=== PATIENT | male | born 1965 | race Two or more races ===

== ENCOUNTER 2021-05-05 13:14 | Inpatient (IN) | payer OTHER ==
[~2021-05-05] VITALS: Ht 177.8 cm; Wt 116.6 kg
[2021-05-05] VITALS (13 sets, daily range): BP systolic 79–197; BP diastolic 43–111
[2021-05-05] MEDS ORDERED: ACCU-CHEK COMFORT CURVE STRIP VI ONE (13:30)
[2021-05-05] MEDS ORDERED: NOREPINEPHRINE 8 MG/250ML KIT 250 ML IV ONE (13:31)
[2021-05-05] MEDS ORDERED: ETOMIDATE (2MG/ML) 20ML VIAL IV ONE ×2 (13:31→13:45)
[2021-05-05] MEDS ORDERED: MIDAZOLAM DRIP 50 mg/50mL 50 ML IV ONE (13:32)
[2021-05-05] MEDS ORDERED: SUCCINYLCHOLINE CHLORIDE 20 MG/ML 10ML VIAL IV ONE ×2 (13:33→13:45)
[2021-05-05] MEDS ORDERED: MIDAZOLAM DRIP 50 mg/50mL 50 ML IV SCH (14:00)
[2021-05-05 14:02] LABS: Hematocrit 47.3 % (41.0-53.0); Mean Corpuscular Hemoglobin 34.9 pg (28.0-32.0); Mean Corpuscular Hgb Conc. 33.8 g/dL (32.0-36.0); Mean Corpuscular Volume 103.3 fL (80.0-100.0); Red Blood Cells 4.58 10^6/uL (4.5-5.90); Red Cell Distribution Width 16.3 % (11.8-14.3); White Blood Cell 11.9 10^3/uL (4.4-10.8)
[2021-05-05 14:17] LABS: Albumin 1.7 g/dL (3.4-5.0); Anion Gap 24 (5-15); Blood Urea Nitrogen 64 mg/dL (7-18); Calcium 7.8 mg/dL (8.5-10.1); Chloride 105 mmol/L (98-107); Glucose 66 mg/dL (74-106); Potassium 4.7 mmol/L (3.5-5.1); Sodium 136 mmol/L (136-145)
[2021-05-05 14:19] LABS: Alanine Aminotransferase 66 U/L (16-61); Aspartate Aminotransferase 164 U/L (15-37); BUN/Creatinine Ratio 14.3; GFR African American 18 mL/min; GFR Non-African American 14 mL/min
[2021-05-05 14:26] LABS: Basophils % (manual) 0 (0.0-2.0); Blast Cells 0; Eosinophils % (manual) 0 (0-7); Reactive Lymphocytes 0
[2021-05-05 14:27] LABS: Lactic Acid w/Reflex 14.1 mmol/L (0.4-2.0)
[2021-05-05 14:30] LABS: INR 1.96 (0.9-1.15)
[2021-05-05 14:31] LABS: Alkaline Phosphatase 131 U/L (45-117); Bilirubin, Total 20.2 mg/dL (0.2-1.0); Total Protein 6.4 g/dL (6.4-8.2)
[2021-05-05 14:35] LABS: Carbon Dioxide 7 mmol/L (21-32)
[2021-05-05] MEDS ORDERED: PROPOFOL 100 ML IV ONE (14:42)
[2021-05-05] MEDS ORDERED: NOREPINEPHRINE 8 MG/250ML KIT 250 ML IV SCH (15:00)
[2021-05-05] MEDS ORDERED: PROPOFOL 100 ML IV SCH (15:00)
[2021-05-05 15:06] LABS: Band Neutrophils % (manual) 14; Lymphocytes % (manual) 6 (10.0-50.0); Metamyelocytes % 2; Monocytes % (manual) 4 (0-12); Myelocytes % 1; Promyelocytes % 1
[2021-05-05] MEDS ORDERED: DEXTROSE 50% SYRINGE 50 ML IV ONE (15:11)
[2021-05-05] MEDS ORDERED: DEXTROSE (50%) 50ML SYRG IV ONE (15:15)
[2021-05-05] MEDS ORDERED: SODIUM BICARBONATE 8.4 % INJ 50ML VIAL IV ONE ×2 (15:30→20:30)
[2021-05-05] MEDS ORDERED: PANTOPRAZOLE 40mg/50ML NS AE 50 ML IV ONE (16:00)
[2021-05-05] MEDS ORDERED: PANTOPRAZOLE 40 MG/10 ML VIAL INJ IV ONE (16:00)
[2021-05-05] MEDS ORDERED: PHYTONADIONE (VIT K)10 MG/ML 1ML VIAL IV ONE (16:30)
[2021-05-05] MEDS ORDERED: LACTULOSE 10g/15ml SOLN PR SCH (16:41)
[2021-05-05] MEDS ORDERED: SODIUM CHLORIDE 0.9% 1,000 ML IV ONE (16:45)
[2021-05-05] MEDS ORDERED: CLINDAMYCIN 900MG IV 50 ML IV ONE (16:45)
[2021-05-05] MEDS ORDERED: LACTULOSE 10g/15ml SOLN PR ONE (16:45)
[2021-05-05] MEDS ORDERED: cefTRIAXone 1GM/50ML D5W 50 ML IV ONE (16:45)
[2021-05-05] MEDS ORDERED: ALBUTEROL SULF HFA 90MCG INH 200DOSE IN PRN (17:45)
[2021-05-05] MEDS ORDERED: NITROGLYCERIN 0.4 MG SL TAB SL PRN (17:45)
[2021-05-05] MEDS ORDERED: MORPHINE SULFATE INJECTION 2 MG/ML SYRG IV PRN (17:45)
[2021-05-05] MEDS: DexAMETHasone SOD PHOS 10MG/1ML VIAL INJ IV SCH (18:37)
[2021-05-05 19:05] LABS: Urine Bacteria NONE SEEN /hpf (None Seen); Urine Blood 2+ /uL (Negative); Urine Specific Gravity 1.025 (1.001-1.035); Urine WBC 27 /hpf (0 - 3); Urine WBC Clumps PRESENT /hpf (None Seen)
[2021-05-05 19:08] LABS: Hemoglobin 14.1 g/dL (13.5-17.5)
[2021-05-05 19:32] LABS: Amylase 21 U/L (25-115); Lipase 24 U/L (73-393)
[2021-05-05 19:35] LABS: Alcohol, Urine < 3.0 mg/dL (0-10); Amphetamine Screen, Urine POSITIVE (NEGATIVE); Barbiturate Scree,Urine NEGATIVE (NEGATIVE); Benzodiazephine Screen, Urine NEGATIVE (NEGATIVE); Cannabinoid Screen, Urine NEGATIVE (NEGATIVE); Cocaine Screen, Urine NEGATIVE (NEGATIVE); Opiate Scree,Urine NEGATIVE (NEGATIVE); Phencyclidine Screen, Urine NEGATIVE (NEGATIVE)
[2021-05-05] MEDS ORDERED: SODIUM BICARBONATE 8.4% INJ 50ML SYRINGE ONE (20:44)
[2021-05-05] MEDS ORDERED: BUDESONIDE (INHALATION) 180 MCG IH IN SCH (22:00)
[2021-05-05] MEDS: SODIUM BICARBONATE 50ML VIAL 150 ML in D5W 5% 1,000 ML IV SCH (22:01)
[2021-05-05] MEDS: CLINDAMYCIN 600MG IV 50 ML IV SCH (22:14)
[2021-05-05] MEDS ORDERED: VASOPRESSIN 50 UNITS in D5W 5% 247.5 ML IV SCH ×2 (23:15→23:45)
[2021-05-05] MEDS: PANTOPRAZOLE 40mg/50ML NS AE 50 ML IV SCH (23:22)
[2021-05-05] MEDS ORDERED: VASOPRESSIN 20 UNIT/ML ONE (23:30)
[2021-05-06] VITALS (16 sets, daily range): BP systolic 0–110; BP diastolic 0–53
[2021-05-06 00:08] LABS: INR 1.85 (0.9-1.15); Partial Thromboplastin Time 56.1 sec (23.6-33.0)
[2021-05-06] MEDS: SODIUM BICARBONATE 50ML VIAL 150 ML in D5W 5% 1,000 ML IV SCH (00:25)
[2021-05-06 01:32] LABS: Hematocrit 43.5 % (41.0-53.0); Hemoglobin 14.3 g/dL (13.5-17.5); Mean Corpuscular Hemoglobin 35.4 pg (28.0-32.0); Mean Corpuscular Hgb Conc. 32.8 g/dL (32.0-36.0); Mean Corpuscular Volume 107.9 fL (80.0-100.0); Red Blood Cells 4.03 10^6/uL (4.5-5.90); White Blood Cell 25.1 10^3/uL (4.4-10.8)
[2021-05-06 01:36] LABS: Basophils % (manual) 0 (0.0-2.0); Blast Cells 0; Eosinophils % (manual) 0 (0-7); Promyelocytes % 0; Reactive Lymphocytes 0
[2021-05-06 02:34] LABS: Band Neutrophils % (manual) 50; Lymphocytes % (manual) 9 (10.0-50.0)
[2021-05-06 02:35] LABS: Metamyelocytes % 1; Monocytes % (manual) 21 (0-12); Myelocytes % 1
[2021-05-06] MEDS: PANTOPRAZOLE 40mg/50ML NS AE 50 ML IV SCH (04:20)
[2021-05-06] MEDS: CLINDAMYCIN 600MG IV 50 ML IV SCH (06:25)
[2021-05-06] MEDS ORDERED: fentaNYL Drip 2500mCg/250mlNS 250 ML IV ONE (07:33)
[2021-05-06] MEDS ORDERED: PHENYLEPHRINE IV 250 ML IV ONE (07:33)
[2021-05-06] MEDS ORDERED: fentaNYL Drip 2500mCg/250mlNS 250 ML IV SCH (07:45)
[2021-05-06] MEDS ORDERED: PHENYLEPHRINE IV 250 ML IV SCH (07:45)
[2021-05-06] MEDS ORDERED: OCTREOTIDE ACETATE 500 MCG in SODIUM CHL 0.9% 99 ML IV SCH (08:30)
[2021-05-06] MEDS ORDERED: cefTRIAXone 1GM/50ML D5W 50 ML IV SCH (09:00)
[2021-05-06 09:10] LABS: Hemoglobin 12.3 g/dL (13.5-17.5)
[2021-05-06 09:12] LABS: Hematocrit 36.2 % (41.0-53.0); Mean Corpuscular Volume 105.8 fL (80.0-100.0); Red Blood Cells 3.42 10^6/uL (4.5-5.90); Red Cell Distribution Width 17.6 % (11.8-14.3)
[2021-05-06] MEDS: DexAMETHasone SOD PHOS 10MG/1ML VIAL INJ IV SCH (09:17)
[2021-05-06 09:19] LABS: INR 2.39 (0.9-1.15); Partial Thromboplastin Time 68.1 sec (23.6-33.0)
[2021-05-06 09:22] LABS: Basophils % (manual) 0 (0.0-2.0); Blast Cells 0; Eosinophils % (manual) 0 (0-7); Promyelocytes % 0; Reactive Lymphocytes 0
[2021-05-06 10:10] LABS: Band Neutrophils % (manual) 35; Lymphocytes % (manual) 5 (10.0-50.0); Metamyelocytes % 2; Monocytes % (manual) 6 (0-12); Myelocytes % 2
[2021-05-06 10:34] LABS: Sodium 135 mmol/L (136-145)
[2021-05-06 10:35] LABS: Alkaline Phosphatase 145 U/L (45-117); Anion Gap 25 (5-15); BUN/Creatinine Ratio 13.1; Blood Urea Nitrogen 73 mg/dL (7-18); Carbon Dioxide 13 mmol/L (21-32); Chloride 97 mmol/L (98-107); GFR African American 14 mL/min; GFR Non-African American 11 mL/min; Glucose 103 mg/dL (74-106); Potassium 7.7 mmol/L (3.5-5.1)
[2021-05-06 10:36] LABS: Alanine Aminotransferase 431 U/L (16-61); Albumin 1.2 g/dL (3.4-5.0); Aspartate Aminotransferase 1932 U/L (15-37); Bilirubin, Total 15.7 mg/dL (0.2-1.0); Calcium 5.3 mg/dL (8.5-10.1); Total Protein 4.3 g/dL (6.4-8.2)
[2021-05-06] MEDS ORDERED: ALBUTEROL SULF 2.5 MG/0.5ML(0.5%) NEB SOLN ONE (11:11)
[2021-05-06] MEDS ORDERED: CALCIUM GLUC 1,000mg/50ml-NS 50 ML IV ONE (11:15)
[2021-05-06] MEDS ORDERED: ALBUTEROL SULF 2.5 MG/0.5ML(0.5%) NEB SOLN NEB ONE (11:15)
[2021-05-06] MEDS ORDERED: LACTULOSE 20Gm/30ML SOLN PO SCH (12:00)
== END 2021-05-06 12:16 | DRG 720 ==
LOC: ER 13:14 → EDBD 13:14 → TELE 17:34
PROVIDERS: ADMIT Internal Medicine; ATTEND Internal Medicine
PROC: 0BH17EZ Insertion of Endotracheal Airway into Trachea, Via Natural or Artificial Opening (ICD-10-PCS; principal; 2021-05-05)
PROC: 5A1935Z Respiratory Ventilation, Less than 24 Consecutive Hours (ICD-10-PCS; 2021-05-05)
PROC: 30233K1 Transfusion of Nonautologous Frozen Plasma into Peripheral Vein, Percutaneous Approach (ICD-10-PCS; 2021-05-05)
PROC: 30233R1 Transfusion of Nonautologous Platelets into Peripheral Vein, Percutaneous Approach (ICD-10-PCS; 2021-05-05)
PROC: 30233N1 Transfusion of Nonautologous Red Blood Cells into Peripheral Vein, Percutaneous Approach (ICD-10-PCS; 2021-05-06)
PROC: 06HY33Z Insertion of Infusion Device into Lower Vein, Percutaneous Approach (ICD-10-PCS; 2021-05-06)
DX: A40.8 Other streptococcal sepsis (principal); K76.7 Hepatorenal syndrome; J96.90 Respiratory failure, unspecified, unspecified whether with hypoxia or hypercapnia; R65.21 Severe sepsis with septic shock; G93.41 Metabolic encephalopathy; E43 Unspecified severe protein-calorie malnutrition; K72.90 Hepatic failure, unspecified without coma; D69.6 Thrombocytopenia, unspecified; J18.9 Pneumonia, unspecified organism; N17.9 Acute kidney failure, unspecified; Z20.822 Contact with and (suspected) exposure to COVID-19; Z66 Do not resuscitate; E16.2 Hypoglycemia, unspecified; K74.60 Unspecified cirrhosis of liver; F10.20 Alcohol dependence, uncomplicated; R04.0 Epistaxis; K40.90 Unilateral inguinal hernia, without obstruction or gangrene, not specified as recurrent; K42.9 Umbilical hernia without obstruction or gangrene; E66.9 Obesity, unspecified; G93.1 Anoxic brain damage, not elsewhere classified; F15.10 Other stimulant abuse, uncomplicated; L03.116 Cellulitis of left lower limb; K70.10 Alcoholic hepatitis without ascites; K92.2 Gastrointestinal hemorrhage, unspecified; Z90.49 Acquired absence of other specified parts of digestive tract; Z68.36 Body mass index [BMI] 36.0-36.9, adult; Z79.899 Other long term (current) drug therapy
CPT/HCPCS: 31500; 36415; 36430; 36600; 51702; 70450; 71045; 74176; 80053; 80307; 81001; 82140; 82150; 82378; 82805; 83605; 83690; 83735; 83880; 84484; 85007; 85014; 85018; 85027; 85045; 85610; 85730; 86850; 86900; 86901; 86920; 87040; 87070; 87077; 87086; 87186; 87205; 87426; 93005; 93971; 94002; 94003; 94644; 96374; 96375; 99291; C9113; G0378; J0330; J0696; J1100; J2250; J2704; J3430; J3490; J7060